=== PATIENT | male | born 1960 | race Caucasian/White ===

== ENCOUNTER 2024-08-09 00:35 | Outpatient (CLI) | payer BC, SELFPAY ==
--- NOTE | 2024-08-09 07:00 | DI.RAD_ITS ---
Exam(s) XR FOOT LT COMPLETE EXAM: XR FOOT LT COMPLETE CLINICAL HISTORY: Left foot pain,m79.672. TECHNIQUE: 2D digital imaging was performed. COMPARISON: No exams were available for comparison FINDINGS: 3 views No evidence of acute fracture or diastasis of the Lisfrank joint. No osseous lesions nor erosions. However, there is pes planus noted. There is also a moderate size inferior calcaneal spur evident. Great toe metatarsophalangeal joint appears unremarkable. No hallux valgus. IMPRESSION: No acute osseous findings. Pes planus noted. DATA REPOSITORY: RADIATION DOSE DELIVERED:
== END 2024-08-09 00:55 ==
PROVIDERS: PCP Family Medicine; Visit Provider Podiatrist
DX: M79.672 Pain in left foot (principal)
CPT/HCPCS: 73630